=== PATIENT | male | born 1980 | race Caucasian/White ===

== ENCOUNTER 2024-09-25 17:45 | Inpatient (IN) | payer MEDICAID ==
[~2024-09-25] VITALS: Ht 185.4 cm; Wt 92.1 kg
[2024-09-25 18:37] LABS: CALCIUM, SERUM 9.2 mg/dL (8.5-10.1); CREATININE 1.0 mg/dL (0.6-1.3); SODIUM SERUM 137 mmol/L (136-145); UREA NITROGEN, BLOOD 11 mg/dL (7-18)
[2024-09-25 18:39] LABS: PLATELET COUNT (AUTO) 291 K/uL (150-450); RED BLOOD CELL COUNT(AUTO) 5.32 MIL/uL (4.5-6.0); RED CELL DISTRIBUTION WIDTH 13.3 % (11.5-15.0); WHITE BLOOD COUNT (AUTO) 11.0 K/uL (4.3-11.0)
[2024-09-25] MEDS ORDERED: MORPHINE SULFATE INJ 4 MG/ML DISP.SYRIN ONE ×2 (18:46→20:50)
[2024-09-25] MEDS ORDERED: LORAZEPAM INJ 2 MG/ML VIAL ONE (18:47)
[2024-09-25 18:50] LABS: ASPARTATE AMINOTRANSFERASE 16 U/L (15-37); TOTAL PROTEIN, SERUM 7.5 g/dL (6.4-8.2)
[2024-09-25] MEDS: IV NS 0.9% 1,000 ML BAG IV ONE ×2 (18:55→20:55)
[2024-09-25] MEDS: LORAZEPAM INJ 2 MG/ML VIAL IV ONE (18:55)
[2024-09-25] MEDS: MORPHINE SULFATE INJ 2 MG/ML DISP.SYRIN IV ONE ×2 (18:55→20:56)
[2024-09-25] MEDS ORDERED: IOHEXOL-350 100 ML VIAL IV ONE (19:21)
[2024-09-25] MEDS ORDERED: IV NS 0.9% 250 ML IV ONE (19:21)
[2024-09-25] MEDS ORDERED: PIPERACI/TAZO 3.375GM/D5W 50ML PB IV ONE (20:42)
[2024-09-25] MEDS: PIPERACILLIN /TAZOBACTAM 3.375 G in IV D5W 50 ML IV ONE (20:45)
[2024-09-25] MEDS ORDERED: ACETAMINOPHEN 325 MG/SUPP.RECT RC ONE (20:52)
[2024-09-25] MEDS: ACETAMINOPHEN 650 MG/SUPP.RECT RC ONE (20:56)
[2024-09-25 21:23] LABS: APPEARANCE,URINE CLEAR (CLEAR); BLOOD, URINE NEGATIVE Ery/uL (NEGATIVE); LEUKOCYTE ESTERASE ,URINE NEGATIVE (NEGATIVE); NITRITE, URINE NEGATIVE (NEGATIVE); UGLUCOSE NEGATIVE (NEGATIVE)
[2024-09-25 21:47] LABS: ADD URINE CULTURE NO; SQUAMOUS EPITHELIAL CELL,UR Few /HPF (None Seen)
[2024-09-25] MEDS ORDERED: DOSING PER PHARMACY-VANCOMYCIN IV XX PRN (22:30)
[2024-09-25] MEDS ORDERED: MAGNESIUM HYDROXIDE 30 ML UDC PO PRN (22:30)
[2024-09-25] MEDS ORDERED: ONDANSETRON HCL/PF 4 MG/2 ML VIAL IVP PRN (22:30)
[2024-09-26] VITALS (22 sets, daily range): BP systolic 94–124; BP diastolic 55–87; TEMP 98.4–103.5; O2SAT 89–99
[2024-09-26] MEDS: VANCOMYCIN 1 GM /D5W 250 ML PB IV ONE (02:07)
[2024-09-26] MEDS: VANCOMYCIN 1.5 GM in IV D5W 500 ML IV ONE (02:13)
[2024-09-26] MEDS: IV NS 0.9% 1,000 ML IV SCH (02:13)
[2024-09-26] MEDS ORDERED: PIPERACILLIN /TAZOBACTAM 3.375 G in IV D5W 50 ML IV SCH (02:30)
[2024-09-26] MEDS: PIPERACI/TAZO 3.375GM/D5W 50ML PB IV ONE (03:22)
[2024-09-26] MEDS: PIPERACILLIN /TAZOBACTAM 3.375 G in IV D5W 50 ML IV ONE (03:45)
[2024-09-26 04:34] LABS: ASPARTATE AMINOTRANSFERASE 14.0 U/L (15-37); CALCIUM, SERUM 8.1 mg/dL (8.5-10.1); CREATININE 1.1 mg/dL (0.6-1.3); PHOSPHORUS 3.1 mg/dL (2.5-4.9); SODIUM SERUM 136.0 mmol/L (136-145); TOTAL PROTEIN, SERUM 6.5 g/dL (6.4-8.2); UREA NITROGEN, BLOOD 9.0 mg/dL (7-18)
[2024-09-26 04:35] LABS: LDL 99.0 mg/dL (0-99)
[2024-09-26 05:09] LABS: PLATELET COUNT (AUTO) 241 K/uL (150-450); RED BLOOD CELL COUNT(AUTO) 5.04 MIL/uL (4.5-6.0); RED CELL DISTRIBUTION WIDTH 13.2 % (11.5-15.0); WHITE BLOOD COUNT (AUTO) 14.5 K/uL (4.3-11.0)
[2024-09-26] MEDS: MORPHINE SULFATE INJ 4 MG/ML DISP.SYRIN IV PRN (05:31)
[2024-09-26] MEDS ORDERED: PREG300C PO (08:21)
[2024-09-26] MEDS: PANTOPRAZOLE 40 MG VIAL IV SCH (09:33)
[2024-09-26] MEDS: PIPERACILLIN /TAZOBACTAM 3.375 G in IV D5W 100 ML IV SCH (09:34)
[2024-09-26] MEDS: ACETAMINOPHEN 325 MG TABLET PO PRN (10:26)
[2024-09-26] MEDS ORDERED: IPRATROPIUM NEB FS 0.5 MG/2.5 ML AMPUL.NEB NEB PRN (10:30)
[2024-09-26] MEDS ORDERED: ALBUTEROL HALF STRENGTH 1.25 MG/3 ML VIAL.NEB NEB PRN (10:30)
[2024-09-26] MEDS: VANCOMYCIN HCL 1.25 GM in IV D5W 250 ML IV SCH (15:00)
[2024-09-27] VITALS (26 sets, daily range): BP systolic 94–142; BP diastolic 63–119; TEMP 98.3–100.9; O2SAT 84–99
[2024-09-27 04:50] LABS: PLATELET COUNT (AUTO) 233 K/uL (150-450); RED BLOOD CELL COUNT(AUTO) 5.27 MIL/uL (4.5-6.0); RED CELL DISTRIBUTION WIDTH 13.3 % (11.5-15.0); WHITE BLOOD COUNT (AUTO) 12.7 K/uL (4.3-11.0)
[2024-09-27 05:28] LABS: CALCIUM, SERUM 8.5 mg/dL (8.5-10.1); CREATININE 1.2 mg/dL (0.6-1.3); SODIUM SERUM 134.0 mmol/L (136-145); UREA NITROGEN, BLOOD 8.0 mg/dL (7-18)
[2024-09-27 05:29] LABS: PHOSPHORUS 2.3 mg/dL (2.5-4.9)
[2024-09-27] MEDS: ACETAMINOPHEN 650 MG/SUPP.RECT RC PRN (09:07)
[2024-09-27] MEDS ORDERED: DIATR MEGLU/DIATRIZOATE SODIUM 30 ML BOTTLE (GASTROGRAPHIN) ONE (10:09)
[2024-09-27] MEDS: POTASSIUM CL. PREMIX PERIPHER. 50 ML IV SCH (11:00)
[2024-09-27] MEDS ORDERED: IOHEXOL-300 100 ML VIAL IV ONE (12:19)
[2024-09-27] MEDS ORDERED: CT SWABBABLE VALVE TRANS SET 1 EA INFUS.SET MC ONE (12:19)
[2024-09-27] MEDS ORDERED: IV NS 0.9% 250 ML IV ONE (12:19)
[2024-09-27] MEDS: Sodium Phosphate 15 MMOL in IV NS 0.9% 245 ML IV SCH (17:39)
[2024-09-27] MEDS: VANCOMYCIN HCL 1.25 GM in IV D5W 250 ML IV SCH (21:50)
[2024-09-28] VITALS (27 sets, daily range): BP systolic 86–129; BP diastolic 54–99; TEMP 97.7–101; O2SAT 92–99
[2024-09-28] MEDS: HYDROMORPHONE 1 MG/1 ML DISP.SYRIN IV PRN (02:09)
[2024-09-28 04:19] LABS: CALCIUM, SERUM 8.4 mg/dL (8.5-10.1); CREATININE 0.8 mg/dL (0.6-1.3); SODIUM SERUM 137.0 mmol/L (136-145); UREA NITROGEN, BLOOD 6.0 mg/dL (7-18)
[2024-09-28 09:08] LABS: PLATELET COUNT (AUTO) 240 K/uL (150-450); RED BLOOD CELL COUNT(AUTO) 4.62 MIL/uL (4.5-6.0); RED CELL DISTRIBUTION WIDTH 13.0 % (11.5-15.0); WHITE BLOOD COUNT (AUTO) 13.7 K/uL (4.3-11.0)
[2024-09-28] MEDS: POTASSIUM CL. PREMIX PERIPHER. 50 ML IV SCH (11:31)
[2024-09-28] MEDS: NICOTINE PATCH (21MG) 21 MG PATCH.TD24 TD SCH (11:36)
[2024-09-28] MEDS: PREGABALIN 100 MG CAPSULE PO SCH (12:27)
[2024-09-28] MEDS: LORAZEPAM INJ 2 MG/ML VIAL IV PRN (15:28)
[2024-09-28 21:40] LABS: HIV-1/2 ANTIBODY NON REACTIVE (NONREACTIVE)
[2024-09-29] VITALS (23 sets, daily range): BP systolic 85–139; BP diastolic 47–100; TEMP 97.6–100.2; O2SAT 89–98
[2024-09-29 04:52] LABS: CALCIUM, SERUM 8.2 mg/dL (8.5-10.1); CREATININE 1.0 mg/dL (0.6-1.3); SODIUM SERUM 137.0 mmol/L (136-145); UREA NITROGEN, BLOOD 6.0 mg/dL (7-18)
[2024-09-29] MEDS: POTASSIUM CL. PREMIX PERIPHER. 50 ML IV SCH (10:42)
[2024-09-29 10:51] LABS: PLATELET COUNT (AUTO) 236 K/uL (150-450); RED BLOOD CELL COUNT(AUTO) 4.23 MIL/uL (4.5-6.0); RED CELL DISTRIBUTION WIDTH 13.5 % (11.5-15.0); WHITE BLOOD COUNT (AUTO) 8.9 K/uL (4.3-11.0)
[2024-09-29 12:29] LABS: AMPHETAMINE, URINE NEGATIVE (NEGATIVE); BARBITURATE, URINE NEGATIVE (NEGATIVE); BENZODIAZEPINE, URINE NEGATIVE (NEGATIVE); CANNABINOID, URINE NEGATIVE (NEGATIVE)
[2024-09-29 12:31] LABS: COCCAINE, URINE POSITIVE (NEGATIVE); OPIATE, URINE POSITIVE (NEGATIVE)
[2024-09-29 12:55] LABS: EOSINOPHILS % (MANUAL) 3 % (0-4); LYMPHOCYTES % (MANUAL) 8 % (16-48); MONOCYTES % (MANUAL) 7 % (0-11.0); NEUTROPHILS % (MANUAL) 82 (42-76); PLATELET ESTIMATE ADEQUATE
[2024-09-30] VITALS (7 sets, daily range): BP systolic 112–125; BP diastolic 75–88; TEMP 97.9–98.8; O2SAT 95–99
[2024-09-30] MEDS: PIPERACI/TAZO 3.375GM/D5W 50ML PB IV ONE (03:36)
[2024-09-30 07:59] LABS: CALCIUM, SERUM 8.6 mg/dL (8.5-10.1); CREATININE 1.0 mg/dL (0.6-1.3); SODIUM SERUM 141.0 mmol/L (136-145); UREA NITROGEN, BLOOD 7.0 mg/dL (7-18)
[2024-09-30] MEDS: POTASSIUM CHLORIDE 20 MEQ TAB.PRT.SR PO ONE (11:41)
[2024-09-30] MEDS: MAG HYDROX/AL HYDROX/SIMETH 30 ML UDC PO PRN (12:48)
[2024-10-01] MEDS ORDERED: PANTOPRAZOLE 40 MG TABLET.DR PO SCH (09:00)
== END 2024-09-30 17:55 | disposition left against medical advice (07) | DRG 720 ==
LOC: ER 17:54 → MED 22:02 → ICU 23:45 → TELE-TD 09-29 15:23 → MEDSG1 09-30 10:09
PROVIDERS: ATTEND Internal Medicine
DX: A41.9 Sepsis, unspecified organism (principal); K57.20 Diverticulitis of large intestine with perforation and abscess without bleeding; F19.10 Other psychoactive substance abuse, uncomplicated; R73.9 Hyperglycemia, unspecified; F17.200 Nicotine dependence, unspecified, uncomplicated; K44.9 Diaphragmatic hernia without obstruction or gangrene; J98.11 Atelectasis
CPT/HCPCS: 36415; 71045-TC; 80048-TC; 80053-TC; 80061-TC; 80076-TC; 80202-TC; 81001; 83605-TC; 83690-TC; 83735-TC; 84100-TC; 84443-TC; 84484-TC; 85025-TC; 85027-TC; 86803; 87040-TC; 87081-TC; 87806; 93307-TC; A4223; A9563; G0378; J1171; J2060; J2270; J2470; J2543; J3373; J3374; J3480; J7030; J7050; J7060; Q9963; Q9967